=== PATIENT | male | born 1980 | race Hispanic/Latino ===

== ENCOUNTER 2023-02-16 09:14 | Emergency (ER) | payer OTHER ==
[~2023-02-16] VITALS: Ht 193 cm; Wt 144.2 kg
[2023-02-16] MEDS ORDERED: IOPAMIDOL 370 MG/ML 100 ML INFUS..BTL INJ ONE (09:51)
[2023-02-16] MEDS ORDERED: MELOXICAM15 MG (09:58)
[2023-02-16] MEDS ORDERED: LEVOFLOXACIN250 MG PO (09:58)
[2023-02-16] MEDS ORDERED: KETOROLAC TROMETHAMINE 30 MG/ML VIAL ONE (10:08)
[2023-02-16] MEDS ORDERED: FAMOTIDINE 20 MG/2 ML VIAL IV ONE (10:09)
[2023-02-16] MEDS ORDERED: SODIUM CHLORIDE 0.9% 1000ML 1,000 ML ONE (10:09)
[2023-02-16] MEDS ORDERED: FAMOTIDINE 20 MG/2 ML VIAL IV STA (10:16)
[2023-02-16] MEDS ORDERED: KETOROLAC TROMETHAMINE 30 MG/ML VIAL IV STA (10:16)
[2023-02-16] MEDS ORDERED: SODIUM CHLORIDE 0.9% 1000ML 1,000 ML IV SCH (10:30)
[2023-02-16] MEDS ORDERED: FAMOTIDINE40 MG PO (13:11)
== END 2023-02-16 13:23 | disposition home or self-care (01) ==
LOC: FSED 09:19
DX: R07.89 Other chest pain (principal); K21.9 Gastro-esophageal reflux disease without esophagitis; E66.01 Morbid (severe) obesity due to excess calories
CPT/HCPCS: 71046; 80053; 81003; 82553; 84484; 85025; 93005; 96374; 96375; 99284; J1885; J7030; Q9967